=== PATIENT | male | born 1990 | race American Indian/Alaskan Native ===

== ENCOUNTER 2018-05-05 20:49 | Emergency (ER) | payer OTHER ==
[2018-05-06] MEDS ORDERED: MOTRIN PO ONE (02:03)
[2018-05-06] MEDS ORDERED: NORCO 5/325 PO ONE (02:03)
[2018-05-06] MEDS ORDERED: NORCO 5/325 ONE (02:05)
[2018-05-06] MEDS ORDERED: MOTRIN ONE (02:05)
[2018-05-06] MEDS ORDERED: BOOSTRIX IM ONE (03:00)
--- NOTE | 2018-05-06 03:00 | Emergency Department Report ---
- General Chief Complaint: Wound/Laceration Stated Complaint: CUT FINGER Time Seen by Provider: 05/06/18 02:56 Source: patient Mode of arrival: Ambulatory Limitations: No Limitations - History of Present Illness Initial Comments: 28y/o [place] male presents to the ER for slice in his left index finger with a knife at approximate 1600 yesterday. Patient is a cook at [employer]. Patient denies any numbness he is able to move his finger without difficulty. He reports his pain to 10 out of 10 medical history currently takes no medication and has no known drug allergies. -: During the night Time: 16:00 (Friday) Place: work Patient Tetanus UTD: No Context: accidental Associated Symptoms: pain Treatments Prior to Arrival: bandage - Related Data Previous Rx's Medication Instructions Recorded Last Taken Type Ibuprofen [Motrin 600 MG tab] 600 mg PO Q8H PRN #30 tablet 05/06/18 Unknown Rx Sulfamethoxazole/Trimethoprim 1 each PO BID #14 tablet 05/06/18 Unknown Rx [Bactrim DS TAB] Allergies Allergy/AdvReac Type Severity Reaction Status Date / Time No Known Allergies Allergy Unverified 05/05/18 21:38 ED Review of Systems ROS: Stated complaint: CUT FINGER Other details as noted in HPI Comment: All other systems reviewed and negative Skin: other (laceration to left index) ED Past Medical Hx - Past Medical History Previous Medical History?: No - Surgical History Past Surgical History?: No - Social History Smoking Status: Never Smoker Substance Use Type: None - Medications Home Medications: Home Medications Medication Instructions Recorded Confirmed Last Taken Type Ibuprofen [Motrin 600 MG tab] 600 mg PO Q8H PRN #30 tablet 05/06/18 Unknown Rx Sulfamethoxazole/Trimethoprim 1 each PO BID #14 tablet 05/06/18 Unknown Rx [Bactrim DS TAB] ED Physical Exam - General Limitations: No Limitations General appearance: alert, in no apparent distress - Head Head exam: Present: atraumatic, normocephalic - Expanded Skin Exam Expanded Type of lesion: Present: laceration Distribution of rash: LUE (index finger) Description of rash: Present: size (2 cm flap), tenderness, swelling - Laceration /Wound Repair Left Finger Wound Location: upper extremity Wound Length (cm): 2 (left index finger) Wound's Depth, Shape: into muscle, irregular, flap Wound Explored: no foreign body removed Irrigated w/ Saline (ccs): 500 Betadine Prep?: Yes Anesthesia: 1% Lidocaine Wound Debrided: minimal Wound Repaired With: sutures Suture Size/Type: 5:0 Number of Sutures: 8 Layer Closure?: No Sterile Dressing Applied?: Yes Progress: Patient tolerated procedure well ED Medical Decision Making - Medical Decision Making Patient has been evaluated by this provider in fast track. Patient with a laceration to the left index sutured up Will place patient on antibiotics Discussed the patient return in 7 days to have sutures removed. Patient can take [id number] Tylenol or Motrin for pain management. Critical care attestation.: If time is entered above; I have spent that time in minutes in the direct care of this critically ill patient, excluding procedure time. ED Disposition Clinical Impression: Laceration of index finger of left hand without complication Qualifiers: Encounter type: initial encounter Qualified Code(s): S61.211A - Laceration without foreign body of left index finger without damage to nail, initial encounter Disposition: DC- TO HOME OR SELFCARE Is pt being admited?: No Does the pt Need Aspirin: No Condition: Stable Instructions: Laceration (ED), Suture Care (ED) Additional Instructions: Keep area clean and dry. Complete your antibiotics as prescribed. Return in 7 days to have sutures removed. You can take Tylenol or Motrin for pain management. Prescriptions: Ibuprofen [Motrin 600 MG tab] 600 mg PO Q8H PRN #30 tablet PRN Reason: Pain Sulfamethoxazole/Trimethoprim [Bactrim DS TAB] 1 each PO BID #14 tablet Referrals: PRIMARY CARE, [Primary Care Provider] - 3-5 Days Forms: Work/School Release Form(ED)
== END 2018-05-06 03:19 | disposition home or self-care (01) ==
LOC: ED 20:49
DX: S61.211A Laceration without foreign body of left index finger without damage to nail, initial encounter (principal); W26.0XXA Contact with knife, initial encounter; Y93.89 Activity, other specified; Y99.0 Civilian activity done for income or pay; Y92.511 Restaurant or cafe as the place of occurrence of the external cause
CPT/HCPCS: 36415; 80307; 90471; 90715; 99282